=== PATIENT | female | born 1980 | race Caucasian/White ===

== ENCOUNTER 2017-05-10 09:22 | Emergency (ER) | payer OTHER ==
[~2017-05-10] VITALS: Ht 162.6 cm; Wt 52.3 kg
[2017-05-10 09:31] VITALS: BP 138/84; PULSE 60; RESP 16; O2SAT 100
--- NOTE | 2017-05-10 10:04 | DRSVH ---
PROCEDURE: X-RAY CHEST ONE VIEW, PORTABLE ([id number]) INDICATIONS: 37 year-old female with bilateral chest pain for 4 days. TECHNIQUE: One view of the chest was acquired. COMPARISON: None. FINDINGS: Surgical changes and devices: None. Lungs and pleura: No pleural effusions or pneumothorax. Lungs are clear. Mediastinum: Mediastinal contours appear normal. Heart size is normal. Bones and chest wall: No suspicious bony lesions. Overlying soft tissues appear unremarkable. IMPRESSION: No acute cardiopulmonary disease. Dictated by: Luis Daniel Vega M.D. on 05/10/2017 at 10:02 Approved by: Luis Daniel Vega M.D. on 05/10/2017 at 10:02
--- NOTE | 2017-05-10 10:09 | ED.REPORT ---
HPI-Dyspnea / Wheezing Date of Service May 10, 2017 ED Provider: Magdi Mauro DO Pt is a healthy 37 y/o female presenting to the ED c/o waxing and waning bilateral chest pain onset 5 days ago. She describes her chest pain as "lung pain" characterized as a dull ache with intermittent sharp episodes. She c/o associated intermittent SOB. Pt denies cough, fever. There is no immediate family history of CAD. She does smoke cigarettes. She was also racing at a [employer] track 1 month ago and crashed hard with the handlebar smashing into her right flank and thinks some of her pain may be related to that event. Nursing Notes Stated Complaint: LUNG PAIN Chief Complaint: Respiratory Complaints Nursing Notes Reviewed: Yes Allergies: Coded Allergies: No Known Allergies (Unverified , 05/10/17) Scheduled PRN Naproxen (Naproxen) 500 Mg Tab 500 MG PO BID PRN PRN For Pain General Time Seen by MD: 09:47 Chief Complaint Chest pain Hx Obtained From: Patient Arrived By: Walk-in Sudden in Onset?: No Onset Occurred: 5 days ago Symptom Duration: Intermittent Location: : Substernal Quality: Painful Severity: Current: Mild Severity: Maximum: Moderate Past Medical History Past Medical History Hx pneumonia Past Surgical History Smoking History Current Every Day Smoker Social History Alcohol Use: "Social" Drug Use: THC Ambulatory Status Independent Review of Systems Constitutional: Denies: Fever Respiratory: Reports: Pleuritic pain, Shortness of breath, Denies: Non-productive cough Cardiovascular: Reports: Chest pain Complete sys rev & neg: except as marked. Physical Exam Initial Vital Signs Vital Signs (First) Date Time Temp Pulse Resp B/P Pulse Ox O2 Delivery O2 Flow Rate FiO2 05/10/17 09:31 36.7 60 16 138/84 100 Room Air Initial VS: Reviewed, Vital signs normal Head / Eyes: Atraumatic, Normocephalic ENT: Mucous membranes moist, Conjunctiva normal Abdomen / GI: Soft, Non-tender, No guarding, No rebound, No distention Extremities: Vascular intact, Neuro intact, No swelling Skin: Warm, Dry, No cyanosis Neurologic: Alert, Oriented, Nonfocal Psychiatric: Mood/affect normal, Behavior normal, Normal thought content General/Constitutional: Awake, Alert, No acute distress, Well appearing, Cooperative, Not toxic appearing Behavior: Positive: Anxious Appears thin Neck: No meningismus, Full range of motion Respiratory / Chest: Breath sounds NL, Breath sounds = bilat, No respiratory distress, No rales, No rhonchi, No wheezing, No retractions, No stridor, No chest tenderness, No chest wall deformity, No crepitus Cardiovascular: Heart rate NL, Regular rhythm, Heart sounds NL, No gallop, No murmurs, No rubs, Cap refill not delayed, Peripheral circulation NL, Pulses = bilaterally Interpretation & Diagnostics Lab Results Interpretation Result Diagram: 05/10/17 1010 05/10/17 1010 Test 05/10/17 10:10 White Blood Count 11.0th/mm3 (3.8-10.1) Red Blood Count 4.29mil/mm3 (3.90-5.20) Hemoglobin 13.5g/dL (12.0-15.6) Hematocrit 39.3% (35.0-46.0) Mean Corpuscular Volume 91.6fL (81-100) Mean Corpuscular Hemoglobin 31.5pg (27.0-35.0) Mean Corpuscular Hemoglobin Concent 34.4% (32.0-37.0) Red Cell Distribution Width 12.8% (12.3-15.4) Platelet Count 241bil/L (150-400) Neutrophils (%) (Auto) 69.9% (40-74) Lymphocytes (%) (Auto) 20.1% (14-46) Monocytes (%) (Auto) 8.0% (4-12) Eosinophils (%) (Auto) 1.0% (0-5) Basophils (%) (Auto) 0.8% (0-3) D-Dimer < 0.50mg/L FEU (<0.50) Sodium Level 136mEq/L (134-144) Potassium Level 3.8mEq/L (3.5-5.2) Chloride Level 102mEq/L (97-108) Carbon Dioxide Level 21mmol/L (18-29) Blood Urea Nitrogen 11mg/dL (6-20) Creatinine 0.71mg/dL (0.57-1.00) Estimat Glomerular Filtration Rate 133mL/min (>59) Glucose Level 96mg/dL (60-99) Calcium Level 9.4mg/dL (8.5-10.1) Total Bilirubin 0.4mg/dL (0.0-1.2) Aspartate Amino Transf (AST/SGOT) 19U/L (0-50) Alanine Aminotransferase (ALT/SGPT) 12U/L (0-32) Alkaline Phosphatase 36U/L (25-150) Troponin T < 0.010ug/L (0.0-0.011) Total Protein 6.8g/dL (6.4-8.4) Albumin 4.1g/dL (3.4-5.0) Hold Kwan Top Tube Received (Received) ECG Interpretation ECG Interpretation: Sinus arrhythmia rate 60 Time: 11:15 Interpreted by: ED physician Normal ECG Interpretation: No acute ischemic changes X-Ray Chest Interpretation Chest Xray Interpretation: IMPRESSION: No acute cardiopulmonary disease. Dictated by: Luis Daniel Vega M.D. on 05/10/2017 at 10:02 Approved by: Luis Daniel Vega M.D. on 05/10/2017 at 10:02 View: Portable, 1 view Interpretation / Wet Read by: Interpret - Radiologist Re-Eval/Medical Decision Re-Evaluation/Progress : Time of Eval: 12:02 Re-Evaluation/Progress Note: Pt rechecked. Informed pt of plan for discharge. Pt understands and agrees with plan for discharge. F/U instructions and RTER warnings given. All questions addressed. Counseled Regarding: Diagnosis, Lab results, Need for follow-up, When/why to return to ED Discharge & Departure Impression: Primary Impression: Chest pain with low risk for cardiac etiology Disposition: Home Discharge Condition All VS Reviewed: Yes Condition: Stable Additional Instructions: Your workup is reassuring. Take naproxen as prescribed. Follow up with a primary care doctor for further evaluation. Return to the ER as needed for worsening symptoms. Scribe Attestation Portions of this note were transcribed by Ean Miller. I, Dr. Mauro personally performed the history, physical exam and medical decision-making; I reviewed and confirmed the accuracy of the information in the transcribed note. Magdi Mauro DO May 10, 2017 10:09 EAN MILLER May 10, 2017 10:13
[2017-05-10 10:34] LABS: BASOPHILS % (AUTO) 0.8 % (0-3); Mean Corpuscular Hemoglobin 31.5 pg (27.0-35.0); Mean Corpuscular Volume 91.6 fL (81-100); NEUTROPHILS % (AUTO) 69.9 % (40-74); Platelet Count 241 bil/L (150-400)
[2017-05-10] MEDS ORDERED: NPR500T PO (11:44)
[2017-05-10 12:05] VITALS: BP 103/52; PULSE 60; RESP 21; O2SAT 100
== END 2017-05-10 12:06 | disposition home or self-care (01) ==
LOC: SED 09:22
DX: R07.2 Precordial pain (principal); R06.02 Shortness of breath; F17.200 Nicotine dependence, unspecified, uncomplicated; Z87.01 Personal history of pneumonia (recurrent); Z87.828 Personal history of other (healed) physical injury and trauma